=== PATIENT | female | born 1960 | race Caucasian/White ===

== ENCOUNTER 2020-01-13 19:08 | Emergency (ER) | payer SELFPAY ==
[~2020-01-13] VITALS: Ht 149.9 cm; Wt 87.1 kg
[2020-01-13 19:08] VITALS: BP 160/92
--- NOTE | 2020-01-13 19:13 | NUR ---
PT ONEIL RODRIGUEZS. TAKEN TO BED 4
--- NOTE | 2020-01-13 19:27 | NUR ---
Dr. Leon examining patient.
[2020-01-13] MEDS ORDERED: LIDOCAINE MPF 1% 10 MG/ML VIAL INJ ONE (19:35)
[2020-01-13] MEDS ORDERED: HYDROcodone/APAP 5/325 MG 1 TAB TAB PO ONE (19:35)
[2020-01-13] MEDS ORDERED: ONDANSETRON 4 MG ODT PO ONE (19:35)
--- NOTE | 2020-01-13 20:06 | NUR ---
PT TAKEN TO RADIOLOGY
--- NOTE | 2020-01-13 20:26 | NUR ---
PT RETURNED FROM CT VIA [facility]
[2020-01-13 21:00] VITALS: BP 160/92
--- NOTE | 2020-01-13 21:00 | NUR ---
DERMABOND TO LACERATION LEFT LATTER DAY. TOLERATED WELL
== END 2020-01-13 21:37 | disposition home or self-care (01) ==
LOC: MED 19:08
DX: S01.81XA Laceration without foreign body of other part of head, initial encounter (principal); S09.90XA Unspecified injury of head, initial encounter; M54.5 Low back pain; I10 Essential (primary) hypertension; W19.XXXA Unspecified fall, initial encounter; Y93.89 Activity, other specified; Y92.89 Other specified places as the place of occurrence of the external cause; Y99.8 Other external cause status
CPT/HCPCS: 12011; 70450; 72100; 72125; 99285; Q0162; J2001